=== PATIENT | female | born 1955 | race Caucasian/White ===

== ENCOUNTER → 2019-07-03 17:28 | Outpatient (CLI) | payer OTHER, SELFPAY ==
--- NOTE | ~2019-07-03 | MM_ITS ---
EXAMINATION: MM screening [facility] BI w [place] HISTORY: Screening mammogram TECHNIQUE: Craniocaudal and mediolateral oblique 3-D tomosynthesis images were obtained and synthetic 2-D images were generated. CAD analysis was submitted and interpreted. COMPARISON: Comparison to multiple prior studies sequentially, with oldest reviewed study dated 01/07. BREAST PARENCHYMAL COMPOSITION: There are scattered areas of fibroglandular density. FINDINGS: There is no evidence of suspicious mass, calcification, or architectural distortion to sugg est malignancy in either breast. There has been no suspicious interval change. IMPRESSION: 1. No mammographic evidence of malignancy. 2. Recommend routine screening mammography in one year. BI-RADS Category 1: Negative Reviewed, dictated and finalized at location A. [employer]
== END ==
PROVIDERS: PCP Internal Medicine
DX: Z12.31 Encounter for screening mammogram for malignant neoplasm of breast (principal)
CPT/HCPCS: 77063; 77067

== ENCOUNTER 2020-02-26 08:33 | Emergency (ER) | payer OTHER, SELFPAY ==
--- NOTE | ~2020-02-26 | XR_ITS ---
EXAMINATION: XR ankle LT min 3V DATE: 02/26/2020 09:22 INDICATION: Left ankle injury and pain. TECHNIQUE: 4 views of left ankle were obtained. COMPARISON: None. FINDINGS: Bone alignment is normal. No acute fracture. There is mild osteoarthritis of talonavicular joint. 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 Ankle soft tissu e swelling is noted. IMPRESSION: 1. No acute fracture. Reviewed, dictated and finalized at location A. IMPRESSION: 1. No acute fracture.
--- NOTE | ~2020-02-26 | XR_ITS ---
EXAMINATION: XR knee LT min 4V DATE: 02/26/2020 09:22 INDICATION: Left knee pain. TECHNIQUE: 5 views of left knee were obtained. COMPARISON: None. FINDINGS: Bone alignment is normal. No fracture. There is moderate osteoarthritis of medial and balderas lofemoral compartments and mild osteoarthritis of lateral compartment. There is a moderate-sized knee joint effusion. IMPRESSION: 1. Moderate left knee osteoarthritis. 2. Moderate-sized left knee joint effusion. Reviewed, dictated and finalized at location A.
--- NOTE | ~2020-02-26 | XR_ITS ---
EXAMINATION: XR hip LT 2V w AP pelvis DATE: 02/26/2020 09:21 INDICATION: Left hip pain. Fall. TECHNIQUE: An anteroposterior view of the pelvis and 2 views of left hip were obtained. COMPARISON: None. FINDINGS: Bone alignment is normal. No fracture. There is mild osteoarthritis of the hips. There is s evere lower lumbar spondylosis. IMPRESSION: 1. Mild osteoarthritis of the hips. Reviewed, dictated and finalized at location A.
[2020-02-26 08:46] VITALS: BP 155/116; PULSE 86; RESP 18; TEMP 37; O2SAT 100
--- NOTE | 2020-02-26 08:54 | PC.NURSE ---
patient here with c/o left hip pain and left knee pain. patient had ground level fall yesterday at work. see triage notes. assessments documented. resting on stretcher. call light in reach. waiting for further orders from provider. denies needs.
--- NOTE | 2020-02-26 09:00 | ED.FALL ---
HPI - Fall General Chief Complaint: Fall Stated Complaint: fell, L leg and hip pain Time Seen by Provider: 02/26/20 08:38 Source: RN notes reviewed History of Present Illness HPI Narrative: Patient presents to emergency department from home for fall. Patient states she fell at approximately 2 PM yesterday. She states that her shoe got caught on the carpet causing her to fall onto her left side. Patient states that since that time she has pain in her left lateral ankle as well as the posterior aspect of her left leg going from her ankle up to her buttocks. Patient states she has been able to get up and walk since the fall. She is on daily diclofenac which she has taken today. She denies striking her head or any loss of consciousness denies any chest pain shortness of breath abdominal pain numbness or tingling in the extremities bowel or bladder incontinence or any other symptoms Related Data Home Medications Medication Instructions Recorded Confirmed diclofenac potassium 50 mg PO DAILY 02/26/20 02/26/20 lisinopril 10 mg PO DAILY 02/26/20 02/26/20 simvastatin 20 mg PO DAILY 02/26/20 02/26/20 verapamil 180 mg PO DAILY 02/26/20 02/26/20 Allergies Allergy/AdvReac Type Severity Reaction Status Date / Time Sulfa (Sulfonamide Allergy Unknown Verified 02/26/20 08:57 Antibiotics) Tetracyclines Allergy Unknown Verified 02/26/20 08:57 Review of Systems Review of Systems: Narrative: Gen.: Denies fevers or chills Eyes: Denies eye pain or visual change ENT: Denies congestion Respiratory: Denies shortness of breath or cough CV: Denies chest pain GI: Denies abdominal pain nausea, emesis denies incontinence Musculoskeletal: See HPI Neuro: Denies numbness, tingling, weakness or focal weakness Skin: Denies rash Except as documented, all other systems reviewed and negative [facility], [facility] Past Medical History Medical History (Updated 02/26/20 @ 09:40 by Truong Stacy DO) Hypertension Social History Social History (Updated 02/26/20 @ 09:02 by Truong Stacy DO) Smoking status: Never smoker Exam Narrative: Exam Narrative: APPEARANCE: No acute distress, nontoxic, resting in bed EYES: EOMI HEENT: Normocephalic, atraumatic, OMM RESPIRATORY: No respiratory distress Clear to auscultation bilaterally with no rhonchi wheezing or rales. CARDIOVASCULAR: Regular rate and rhythm without murmurs rubs or gallops. ABDOMINAL: Soft, nontender, nondistended, no rebound or guarding Back: No midline thoracic or lumbar tenderness palpation MUSCULOSKELETAl: No tenderness palpation of bilateral upper extremities the right lower extremity, the left lateral ankle is mildly tender to palpation no swelling or ecchymosis no tenderness over the anterior or medial ankle, tender palpation over the left posterior knee no tenderness of the medial lateral or anterior knee with tenderness over the posterior thigh and hip no tenderness over the lateral or anterior hip, full motion of the ankle knee and hip with pain with flexion of the hip dorsalis pedis pulse 2+ neurovascular intact no ecchymosis seen NEURO: Awake and alert. Following commands, speech normal, no focal deficits SKIN:: Warm, dry. No rashes lesions or abrasions PSYCHIATRIC: Normal affect/mood, Course Course Emergency Course: Patient has been walking but has been using her 's cane will give crutches at this time. Patient with no fracture seen on suspect with her tenderness over the posterior leg possible hamstring strain Discussed with patient results of workup and diagnosis. Discussed need for follow-up with primary care, proper use of medication, and reasons to return to the emergency department. Patient understands and agrees to current treatment plan Vital Signs Vital signs: Vital Signs Temperature 98.6 F 02/26/20 08:46 Pulse Rate 86 02/26/20 08:46 Respiratory Rate 18 02/26/20 08:46 Blood Pressure 155/116 H 02/26/20 08:46 Pulse Oximetry 100 02/26/20 08:46
[2020-02-26] MEDS: ACETAMINOPHEN 500 MG TABLET 1000 MG PO (09:01)
[2020-02-26 10:03] VITALS: BP 154/91; PULSE 75; RESP 16; O2SAT 100
== END 2020-02-26 10:05 | disposition home or self-care (01) ==
PROVIDERS: Emergency Provider Emergency Medicine; PCP Internal Medicine
DX: S90.02XA Contusion of left ankle, initial encounter (principal); S76.912A Strain of unspecified muscles, fascia and tendons at thigh level, left thigh, initial encounter; I10 Essential (primary) hypertension; M16.0 Bilateral primary osteoarthritis of hip; M17.12 Unilateral primary osteoarthritis, left knee; W01.0XXA Fall on same level from slipping, tripping and stumbling without subsequent striking against object, initial encounter
CPT/HCPCS: 73502; 73564; 73610; 99284; A9270

== ENCOUNTER → 2020-09-12 17:02 | Outpatient (CLI) | payer OTHER, SELFPAY ==
--- NOTE | ~2020-09-12 | MM_ITS ---
EXAMINATION: MM screening [facility] w [place] HISTORY: Screening TECHNIQUE: Craniocaudal and mediolateral oblique 3-D tomosynthesis images were obtained and synthetic 2-D images were generated. CAD analysis was submitted and interpreted. COMPARISON: Comparison to multiple prior studies sequentially, with oldest reviewed study dated 03/14. BREAST PARENCHYMAL COMPOSITION: The breasts are almost entirely fatty. FINDINGS: There is no evidence of suspicious mass, calcification, or architectural distortion to sugg est malignancy in either breast. There has been no suspicious interval change. IMPRESSION: 1. No mammographic evidence of malignancy. 2. Recommend routine screening mammography in one year. BI-RADS Category 1: Negative Reviewed, dictated and finalized at location A.
== END ==
PROVIDERS: PCP Internal Medicine
DX: Z12.31 Encounter for screening mammogram for malignant neoplasm of breast (principal)
CPT/HCPCS: 77063; 77067